=== PATIENT | male | born 1955 | race Caucasian/White ===

== ENCOUNTER 2017-05-17 02:02 | Inpatient (IN) | payer OTHER ==
[~2017-05-17] VITALS: Ht 172.7 cm; Wt 69.0 kg
[2017-05-17] MEDS ORDERED: SPIR25 PO (02:14)
[2017-05-17] MEDS ORDERED: OXYC5TAB3 PO (02:14)
[2017-05-17] MEDS ORDERED: OS500 PO (02:14)
[2017-05-17] MEDS ORDERED: LACT30L PO (02:14)
[2017-05-17] MEDS ORDERED: CIPR-245 PO (02:14)
[2017-05-17] MEDS ORDERED: FURO40TA5 PO (02:14)
[2017-05-17] MEDS ORDERED: FOLI1TAB15 PO (02:14)
[2017-05-17] MEDS ORDERED: THIA100 PO (02:14)
[2017-05-17 02:47] LABS: BASOPHILS % (AUTO) 0.3 % (0.0-2.0); EOSINOPHILS % (AUTO) 0.6 % (1.0-6.0); HEMATOCRIT 29.7 % (41-53); HEMOGLOBIN 10.2 g/dL (13.5-17.5); LYMPHOCYTES # (AUTO) 1.7 K/uL (1.0-4.8); LYMPHOCYTES % (AUTO) 13.5 % (22.0-44.0); MEAN CORPUSCULAR HEMOGLOBIN 32.1 pg (26.0-34.0); MEAN CORPUSCULAR HGB CONC 34.3 G/dL (31.0-37.0); MEAN CORPUSCULAR VOLUME 94 fL (80-100); MONOCYTES # (AUTO) 0.5 K/uL (0.1-1.0); MONOCYTES % (AUTO) 4.3 % (2.0-9.0); NEUTROPHILS # (AUTO) 10.3 K/uL (1.8-7.7); NEUTROPHILS % (AUTO) 81.3 % (40.0-70.0); PLATELET COUNT (AUTO) 233 K/uL (150-450); RED BLOOD CELL COUNT(AUTO) 3.18 MIL/uL (4.50-5.90); RED CELL DISTRIBUTION WIDTH 14.7 % (11.5-14.5); WHITE BLOOD COUNT (AUTO) 12.6 K/uL (4.5-11.0)
[2017-05-17 02:55] LABS: APPEARANCE,URINE CLOUDY (CLEAR); GLUCOSE, URINE (UA) NEGATIVE (NEGATIVE); KETONES,URINE TRACE mg/dL (NEGATIVE); LEUKOCYTE ESTERASE ,URINE MODERATE (NEGATIVE); OCCULT BLOOD,URINE LARGE (NEGATIVE); PROTEIN,URINE SEE CONFIRM (NEGATIVE)
[2017-05-17 03:07] LABS: B-TYPE NATRIURETIC PEPTIDE 80 pg/mL (0-100)
[2017-05-17 03:09] LABS: AMMONIA 170 umol/L (11-32); TROPONIN I < 0.02 ng/mL (0.00-0.05)
[2017-05-17 03:14] LABS: ANION GAP 12 mmol/L (8-16); CARBON DIOXIDE 18 mmol/L (22-29); CHLORIDE 112 mmol/L (98-107); CREATININE 1.73 mg/dL (0.60-1.30); GLOMERULAR FILTR. RATE CALC 40 mL/min (>60); SODIUM SERUM 142 mmol/L (136-145); UREA NITROGEN, BLOOD 37 mg/dL (7-18)
[2017-05-17 03:24] LABS: SULFOSALICYLIC ACID,URINE 3+ (Negative)
[2017-05-17 03:27] LABS: SQUAMOUS EPITHELIAL CELL,UR Few /LPF (None Seen); WBC,URINE 51-100 /HPF (0-5)
[2017-05-17 03:34] LABS: ALANINE AMINOTRANSFERASE 31 U/L (12-78); ALBUMIN 1.6 g/dL (3.4-5.0); ASPARTATE AMINOTRANSFERASE 79 U/L (15-37); BILIRUBIN,TOTAL 1.5 mg/dL (0.1-1.0); TOTAL PROTEIN, SERUM 6.6 g/dL (6.4-8.2)
[2017-05-17 03:44] LABS: LACTIC ACID 4.5 mmol/L (0.4-2.0)
[2017-05-17] MEDS ORDERED: LACTULOSE 200 GM/300 ML RECTAL SOLUTION PR ONE (04:00)
[2017-05-17 04:38] LABS: REFLEX LACTIC ACID? YES YES
[2017-05-17] MEDS ORDERED: CefTRIAXone 1 GM/DEXTROSE 50 ML IV ONE (04:45)
[2017-05-17] MEDS ORDERED: 0.9% SODIUM CHLORIDE 10 ML SYRINGE IVP PRN (05:45)
[2017-05-17] MEDS ORDERED: ONDANSETRON HCL 4 MG/2 ML VIAL IVP PRN (05:45)
[2017-05-17] MEDS ORDERED: SODIUM CHLORIDE 0.9% 2,000 ML IV ONE (06:00)
[2017-05-17 09:21] VITALS: BP 156/92
[2017-05-17 11:32] VITALS: BP 185/92
[2017-05-17] MEDS ORDERED: SPIR50 PO (15:05)
[2017-05-17] MEDS: LORazepam 2 MG/ML VIAL IVP PRN ×2 (15:06→20:51)
[2017-05-17 19:42] VITALS: BP 159/93
[2017-05-17] MEDS: RIFAXIMIN 550 MG TABLET PO SCH (21:29)
[2017-05-17] MEDS ORDERED: ACETAMINOPHEN 325 MG TABLET PO PRN (21:30)
[2017-05-18] MEDS ORDERED: CefTRIAXone 1 GM/DEXTROSE 50 ML IV SCH
[2017-05-18] MEDS ORDERED: LACTULOSE 20 GM/30 ML SOLUTION UDCUP PO SCH
[2017-05-18 00:05] VITALS: BP 160/91
[2017-05-18] MEDS ORDERED: SODIUM CHLORIDE 0.9% 500 ML IV ONE (00:20)
[2017-05-18] MEDS: AZITHROMYCIN 500 MG/NS 250 ML IV SCH (00:52)
[2017-05-18] MEDS: LACTULOSE 20 GM/30 ML SOLUTION UDCUP PO SCH ×6 (00:52→18:00)
[2017-05-18] MEDS: LORazepam 2 MG/ML VIAL IVP PRN ×3 (00:53→19:46)
[2017-05-18 04:31] VITALS: BP 158/91
[2017-05-18 05:48] LABS: BASOPHILS # (AUTO) 0.03 K/uL (0.00-0.20); BASOPHILS % (AUTO) 0.2 % (0.0-2.0); EOSINOPHILS # (AUTO) 0.16 K/uL (0.00-0.70); EOSINOPHILS % (AUTO) 1.19 % (1.0-6.0); HEMATOCRIT 27.3 % (41-53); HEMOGLOBIN 9.3 g/dL (13.5-17.5); INR 1.2 (0.9-1.1); LYMPHOCYTES # (AUTO) 1.6 K/uL (1.0-4.8); LYMPHOCYTES % (AUTO) 11.7 % (22.0-44.0); MEAN CORPUSCULAR HEMOGLOBIN 32.2 pg (26.0-34.0); MEAN CORPUSCULAR HGB CONC 33.9 G/dL (31.0-37.0); MEAN CORPUSCULAR VOLUME 95 fL (80-100); MONOCYTES # (AUTO) 0.9 K/uL (0.1-1.0); MONOCYTES % (AUTO) 6.6 % (2.0-9.0); NEUTROPHILS # (AUTO) 10.7 K/uL (1.8-7.7); NEUTROPHILS % (AUTO) 80.3 % (40.0-70.0); PLATELET COUNT (AUTO) 218 K/uL (150-450); PROTHROMBIN TIME 12.5 SEC (9.4-11.6); RED BLOOD CELL COUNT(AUTO) 2.88 MIL/uL (4.50-5.90); RED CELL DISTRIBUTION WIDTH 14.5 % (11.5-14.5); WHITE BLOOD COUNT (AUTO) 13.4 K/uL (4.5-11.0)
[2017-05-18 06:04] LABS: CREATININE 1.42 mg/dL (0.60-1.30); POTASSIUM 3.7 mmol/L (3.5-5.1)
[2017-05-18] MEDS: CefTRIAXone 1 GM/DEXTROSE 50 ML IV SCH (07:51)
[2017-05-18] MEDS: SPIRONOLACTONE 50 MG TABLET PO SCH (08:49)
[2017-05-18] MEDS: THIAMINE HCL 100 MG TABLET PO SCH (08:50)
[2017-05-18] MEDS: FUROSEMIDE 40 MG TABLET PO SCH (08:50)
[2017-05-18] MEDS: FOLIC ACID 1 MG TABLET PO SCH (08:50)
[2017-05-18] MEDS: CALCIUM OYSTER SHELL 500 MG TABLET PO SCH (09:00)
[2017-05-18] MEDS: RIFAXIMIN 550 MG TABLET PO SCH ×2 (09:00→20:02)
[2017-05-18 12:00] VITALS: BP 160/98
[2017-05-18 15:48] VITALS: BP 175/97
[2017-05-18 19:58] VITALS: BP 159/97
[2017-05-18] MEDS: METOPROLOL TARTRATE 50 MG TABLET PO SCH (20:02)
[2017-05-18] MEDS: DEXTROSE 5%-0.45% SODIUM CHL 1,000 ML IV SCH (20:03)
[2017-05-19] VITALS (7 sets, daily range): BP systolic 138–162; BP diastolic 78–101
[2017-05-19] MEDS: LORazepam 2 MG/ML VIAL IVP PRN ×4 (00:03→10:23)
[2017-05-19] MEDS: LACTULOSE 20 GM/30 ML SOLUTION UDCUP PO SCH ×4 (00:03→17:41)
[2017-05-19] MEDS: AZITHROMYCIN 500 MG/NS 250 ML IV SCH (01:09)
[2017-05-19] MEDS: CefTRIAXone 1 GM/DEXTROSE 50 ML IV SCH (08:39)
[2017-05-19] MEDS: METOPROLOL TARTRATE 50 MG TABLET PO SCH ×2 (08:44→20:48)
[2017-05-19] MEDS: FUROSEMIDE 40 MG TABLET PO SCH (08:44)
[2017-05-19] MEDS: FOLIC ACID 1 MG TABLET PO SCH (08:46)
[2017-05-19] MEDS: RIFAXIMIN 550 MG TABLET PO SCH (08:47)
[2017-05-19] MEDS: SPIRONOLACTONE 50 MG TABLET PO SCH (08:47)
[2017-05-19] MEDS: CALCIUM OYSTER SHELL 500 MG TABLET PO SCH (08:47)
[2017-05-19] MEDS: THIAMINE HCL 100 MG TABLET PO SCH (09:09)
[2017-05-19] MEDS: DEXTROSE 5%-0.45% SODIUM CHL 1,000 ML IV SCH (14:09)
[2017-05-19 15:46] LABS: BASOPHILS % (AUTO) 0.6 % (0.0-2.0); EOSINOPHILS % (AUTO) 4.1 % (1.0-6.0); HEMATOCRIT 30.7 % (41-53); HEMOGLOBIN 10.5 g/dL (13.5-17.5); LYMPHOCYTES # (AUTO) 2.3 K/uL (1.0-4.8); LYMPHOCYTES % (AUTO) 32.1 % (22.0-44.0); MEAN CORPUSCULAR HEMOGLOBIN 32.3 pg (26.0-34.0); MEAN CORPUSCULAR HGB CONC 34.1 G/dL (31.0-37.0); MEAN CORPUSCULAR VOLUME 95 fL (80-100); MONOCYTES # (AUTO) 0.7 K/uL (0.1-1.0); MONOCYTES % (AUTO) 9.4 % (2.0-9.0); NEUTROPHILS # (AUTO) 3.9 K/uL (1.8-7.7); NEUTROPHILS % (AUTO) 53.8 % (40.0-70.0); PLATELET COUNT (AUTO) 248 K/uL (150-450); RED BLOOD CELL COUNT(AUTO) 3.24 MIL/uL (4.50-5.90); RED CELL DISTRIBUTION WIDTH 14.8 % (11.5-14.5); WHITE BLOOD COUNT (AUTO) 7.3 K/uL (4.5-11.0)
[2017-05-19 15:56] LABS: CALCIUM, TOTAL 8.3 mg/dL (8.8-10.5); CREATININE 1.28 mg/dL (0.60-1.30); POTASSIUM 3.6 mmol/L (3.5-5.1)
[2017-05-19 16:01] LABS: ALBUMIN 1.5 g/dL (3.4-5.0); TOTAL PROTEIN, SERUM 6.2 g/dL (6.4-8.2)
[2017-05-20] MEDS: RIFAXIMIN 550 MG TABLET PO SCH ×3 (00:11→20:19)
[2017-05-20] MEDS: LACTULOSE 20 GM/30 ML SOLUTION UDCUP PO SCH ×5 (00:11→23:36)
[2017-05-20] MEDS: AZITHROMYCIN 500 MG/NS 250 ML IV SCH (00:12)
[2017-05-20] MEDS: LORazepam 2 MG/ML VIAL IVP PRN ×4 (00:12→20:24)
[2017-05-20] MEDS: DEXTROSE 5%-0.45% SODIUM CHL 1,000 ML IV SCH ×2 (05:28→16:11)
[2017-05-20 05:55] LABS: BASOPHILS % (AUTO) 0.6 % (0.0-2.0); EOSINOPHILS % (AUTO) 5.5 % (1.0-6.0); HEMATOCRIT 29.1 % (41-53); HEMOGLOBIN 10.1 g/dL (13.5-17.5); LYMPHOCYTES # (AUTO) 2.4 K/uL (1.0-4.8); LYMPHOCYTES % (AUTO) 43.7 % (22.0-44.0); MEAN CORPUSCULAR HEMOGLOBIN 32.2 pg (26.0-34.0); MEAN CORPUSCULAR HGB CONC 34.8 G/dL (31.0-37.0); MEAN CORPUSCULAR VOLUME 93 fL (80-100); MONOCYTES # (AUTO) 0.6 K/uL (0.1-1.0); NEUTROPHILS # (AUTO) 2.2 K/uL (1.8-7.7); NEUTROPHILS % (AUTO) 39.2 % (40.0-70.0); PLATELET COUNT (AUTO) 235 K/uL (150-450); RED BLOOD CELL COUNT(AUTO) 3.14 MIL/uL (4.50-5.90); RED CELL DISTRIBUTION WIDTH 14.4 % (11.5-14.5); WHITE BLOOD COUNT (AUTO) 5.6 K/uL (4.5-11.0)
[2017-05-20 06:53] LABS: ALBUMIN 1.3 g/dL (3.4-5.0); BILIRUBIN,TOTAL 0.8 mg/dL (0.1-1.0); CALCIUM, TOTAL 8.1 mg/dL (8.8-10.5); CREATININE 1.34 mg/dL (0.60-1.30); POTASSIUM 3.4 mmol/L (3.5-5.1); TOTAL PROTEIN, SERUM 5.8 g/dL (6.4-8.2)
[2017-05-20 08:04] VITALS: BP 152/82
[2017-05-20] MEDS: CefTRIAXone 1 GM/DEXTROSE 50 ML IV SCH (08:56)
[2017-05-20] MEDS: CALCIUM OYSTER SHELL 500 MG TABLET PO SCH (08:56)
[2017-05-20] MEDS: FOLIC ACID 1 MG TABLET PO SCH (08:57)
[2017-05-20] MEDS: FUROSEMIDE 40 MG TABLET PO SCH (08:57)
[2017-05-20] MEDS: THIAMINE HCL 100 MG TABLET PO SCH (08:57)
[2017-05-20] MEDS: SPIRONOLACTONE 50 MG TABLET PO SCH (08:57)
[2017-05-20] MEDS: METOPROLOL TARTRATE 50 MG TABLET PO SCH ×2 (08:57→20:19)
[2017-05-20 11:25] VITALS: BP 143/84
[2017-05-20 16:07] VITALS: BP 164/80
[2017-05-20 20:00] VITALS: BP 152/86
[2017-05-21] VITALS: BP 151/64
[2017-05-21] MEDS: AZITHROMYCIN 500 MG/NS 250 ML IV SCH (00:01)
[2017-05-21] MEDS: LORazepam 2 MG/ML VIAL IVP PRN ×2 (01:39→22:28)
[2017-05-21 04:21] VITALS: BP 138/70
[2017-05-21] MEDS: LACTULOSE 20 GM/30 ML SOLUTION UDCUP PO SCH ×4 (06:03→23:35)
[2017-05-21] MEDS: DEXTROSE 5%-WATER 1,000 ML IV SCH ×2 (06:03→20:10)
[2017-05-21 07:08] LABS: BASOPHILS % (AUTO) 0.8 % (0.0-2.0); EOSINOPHILS % (AUTO) 4.1 % (1.0-6.0); HEMATOCRIT 28.8 % (41-53); HEMOGLOBIN 9.9 g/dL (13.5-17.5); LYMPHOCYTES # (AUTO) 3.2 K/uL (1.0-4.8); LYMPHOCYTES % (AUTO) 49.7 % (22.0-44.0); MEAN CORPUSCULAR HEMOGLOBIN 32.3 pg (26.0-34.0); MEAN CORPUSCULAR HGB CONC 34.3 G/dL (31.0-37.0); MEAN CORPUSCULAR VOLUME 94 fL (80-100); MONOCYTES # (AUTO) 0.7 K/uL (0.1-1.0); MONOCYTES % (AUTO) 11.6 % (2.0-9.0); NEUTROPHILS # (AUTO) 2.1 K/uL (1.8-7.7); NEUTROPHILS % (AUTO) 33.8 % (40.0-70.0); PLATELET COUNT (AUTO) 225 K/uL (150-450); RED BLOOD CELL COUNT(AUTO) 3.06 MIL/uL (4.50-5.90); RED CELL DISTRIBUTION WIDTH 15.1 % (11.5-14.5); WHITE BLOOD COUNT (AUTO) 6.3 K/uL (4.5-11.0)
[2017-05-21 07:21] LABS: ALBUMIN 1.3 g/dL (3.4-5.0); BILIRUBIN,TOTAL 0.5 mg/dL (0.1-1.0); CREATININE 1.4 mg/dL (0.60-1.30); POTASSIUM 3.6 mmol/L (3.5-5.1); TOTAL PROTEIN, SERUM 5.6 g/dL (6.4-8.2)
[2017-05-21] MEDS: FOLIC ACID 1 MG TABLET PO SCH (08:34)
[2017-05-21] MEDS: CefTRIAXone 1 GM/DEXTROSE 50 ML IV SCH (08:34)
[2017-05-21] MEDS: METOPROLOL TARTRATE 50 MG TABLET PO SCH ×2 (08:34→20:09)
[2017-05-21] MEDS: THIAMINE HCL 100 MG TABLET PO SCH (08:34)
[2017-05-21] MEDS: CALCIUM OYSTER SHELL 500 MG TABLET PO SCH (08:34)
[2017-05-21] MEDS: RIFAXIMIN 550 MG TABLET PO SCH ×2 (08:34→20:09)
[2017-05-21 09:54] VITALS: BP 144/75
[2017-05-21 11:14] VITALS: BP 167/89
[2017-05-21 16:03] LABS: CALCIUM, TOTAL 7.8 mg/dL (8.8-10.5); CREATININE 1.26 mg/dL (0.60-1.30); POTASSIUM 3.5 mmol/L (3.5-5.1)
[2017-05-21 19:28] VITALS: BP 137/78
[2017-05-21 23:11] VITALS: BP 142/67
[2017-05-22] MEDS: AZITHROMYCIN 500 MG/NS 250 ML IV SCH (00:04)
[2017-05-22 04:24] VITALS: BP 138/72
[2017-05-22] MEDS: LACTULOSE 20 GM/30 ML SOLUTION UDCUP PO SCH ×3 (05:40→17:19)
[2017-05-22 07:50] LABS: BASOPHILS # (AUTO) 0.06 K/uL (0.00-0.20); EOSINOPHILS # (AUTO) 0.32 K/uL (0.00-0.70); EOSINOPHILS % (AUTO) 4.82 % (1.0-6.0); HEMATOCRIT 26.7 % (41-53); HEMOGLOBIN 8.9 g/dL (13.5-17.5); LYMPHOCYTES # (AUTO) 3.4 K/uL (1.0-4.8); LYMPHOCYTES % (AUTO) 50.6 % (22.0-44.0); MEAN CORPUSCULAR HEMOGLOBIN 31.7 pg (26.0-34.0); MEAN CORPUSCULAR HGB CONC 33.4 G/dL (31.0-37.0); MEAN CORPUSCULAR VOLUME 95 fL (80-100); MONOCYTES # (AUTO) 0.8 K/uL (0.1-1.0); NEUTROPHILS # (AUTO) 2.1 K/uL (1.8-7.7); NEUTROPHILS % (AUTO) 31.7 % (40.0-70.0); PLATELET COUNT (AUTO) 183 K/uL (150-450); RED BLOOD CELL COUNT(AUTO) 2.81 MIL/uL (4.50-5.90); RED CELL DISTRIBUTION WIDTH 15.6 % (11.5-14.5); WHITE BLOOD COUNT (AUTO) 6.6 K/uL (4.5-11.0)
[2017-05-22 08:03] LABS: ALANINE AMINOTRANSFERASE 80 U/L (12-78); ALBUMIN 1.2 g/dL (3.4-5.0); ANION GAP 7 mmol/L (8-16); ASPARTATE AMINOTRANSFERASE 157 U/L (15-37); BILIRUBIN,TOTAL 0.5 mg/dL (0.1-1.0); CALCIUM, TOTAL 7.7 mg/dL (8.8-10.5); CARBON DIOXIDE 22 mmol/L (22-29); CHLORIDE 118 mmol/L (98-107); GLOMERULAR FILTR. RATE CALC > 60 mL/min (>60); POTASSIUM 3.3 mmol/L (3.5-5.1); SODIUM SERUM 147 mmol/L (136-145); TOTAL PROTEIN, SERUM 5.4 g/dL (6.4-8.2); UREA NITROGEN, BLOOD 19 mg/dL (7-18)
[2017-05-22 08:13] VITALS: BP 132/70
[2017-05-22] MEDS: CALCIUM OYSTER SHELL 500 MG TABLET PO SCH (08:31)
[2017-05-22] MEDS: RIFAXIMIN 550 MG TABLET PO SCH ×2 (08:31→21:28)
[2017-05-22] MEDS: CefTRIAXone 1 GM/DEXTROSE 50 ML IV SCH (08:31)
[2017-05-22] MEDS: METOPROLOL TARTRATE 50 MG TABLET PO SCH ×2 (08:31→21:28)
[2017-05-22] MEDS: FOLIC ACID 1 MG TABLET PO SCH (08:31)
[2017-05-22] MEDS: THIAMINE HCL 100 MG TABLET PO SCH (08:31)
[2017-05-22] MEDS: CloNIDine HCL 0.1 MG TABLET PO PRN (08:31)
[2017-05-22] MEDS: DEXTROSE 5%-WATER 1,000 ML IV SCH ×2 (09:43)
[2017-05-22] MEDS ORDERED: POTASSIUM CHLORIDE 20 MEQ ER TABLET PO ONE (13:15)
[2017-05-22 13:16] VITALS: BP 138/72
[2017-05-22 16:02] VITALS: BP 140/68
[2017-05-22 17:41] LABS: CALCIUM, TOTAL 7.8 mg/dL (8.8-10.5); CREATININE 1.22 mg/dL (0.60-1.30); POTASSIUM 3.5 mmol/L (3.5-5.1)
[2017-05-22 21:32] VITALS: BP 156/86
[2017-05-23] MEDS: DEXTROSE 5%-WATER 1,000 ML IV SCH ×4 (00:01→23:39)
[2017-05-23 00:15] VITALS: BP 135/66
[2017-05-23 05:30] VITALS: BP 145/83
[2017-05-23] MEDS: LACTULOSE 20 GM/30 ML SOLUTION UDCUP PO SCH ×5 (05:42→23:38)
[2017-05-23 07:06] LABS: EOSINOPHILS % (AUTO) 3.9 % (1.0-6.0); HEMOGLOBIN 9.7 g/dL (13.5-17.5); LYMPHOCYTES # (AUTO) 3.2 K/uL (1.0-4.8); LYMPHOCYTES % (AUTO) 37.5 % (22.0-44.0); MEAN CORPUSCULAR HEMOGLOBIN 32.8 pg (26.0-34.0); MEAN CORPUSCULAR HGB CONC 34.5 G/dL (31.0-37.0); MEAN CORPUSCULAR VOLUME 95 fL (80-100); MONOCYTES # (AUTO) 0.9 K/uL (0.1-1.0); MONOCYTES % (AUTO) 10.5 % (2.0-9.0); NEUTROPHILS % (AUTO) 47.1 % (40.0-70.0); PLATELET COUNT (AUTO) 173 K/uL (150-450); RED BLOOD CELL COUNT(AUTO) 2.95 MIL/uL (4.50-5.90); RED CELL DISTRIBUTION WIDTH 15.6 % (11.5-14.5); WHITE BLOOD COUNT (AUTO) 8.5 K/uL (4.5-11.0)
[2017-05-23 07:28] LABS: ALBUMIN 1.2 g/dL (3.4-5.0); BILIRUBIN,TOTAL 0.6 mg/dL (0.1-1.0); CALCIUM, TOTAL 7.6 mg/dL (8.8-10.5); CREATININE 1.25 mg/dL (0.60-1.30); TOTAL PROTEIN, SERUM 5.4 g/dL (6.4-8.2)
[2017-05-23 07:30] VITALS: BP 143/86
[2017-05-23] MEDS: CALCIUM OYSTER SHELL 500 MG TABLET PO SCH (08:56)
[2017-05-23] MEDS: CloNIDine HCL 0.1 MG TABLET PO PRN (08:56)
[2017-05-23] MEDS: FOLIC ACID 1 MG TABLET PO SCH (08:56)
[2017-05-23] MEDS: RIFAXIMIN 550 MG TABLET PO SCH ×2 (08:56→20:38)
[2017-05-23] MEDS: THIAMINE HCL 100 MG TABLET PO SCH (08:56)
[2017-05-23] MEDS: METOPROLOL TARTRATE 50 MG TABLET PO SCH ×2 (08:56→20:38)
[2017-05-23] MEDS: CefTRIAXone 1 GM/DEXTROSE 50 ML IV SCH (08:57)
[2017-05-23 11:30] VITALS: BP 137/82
[2017-05-23] MEDS ORDERED: PANTOPRAZOLE SODIUM 40 MG/VIAL IVP ONE (14:30)
[2017-05-23 15:20] VITALS: BP 138/73
[2017-05-23 20:39] VITALS: BP 131/75
[2017-05-23] MEDS: AZITHROMYCIN 500 MG/NS 250 ML IV SCH ×2 (23:39)
[2017-05-24 00:01] VITALS: BP 137/74
[2017-05-24 04:43] VITALS: BP 121/61
[2017-05-24] MEDS: LACTULOSE 20 GM/30 ML SOLUTION UDCUP PO SCH ×2 (05:13→11:55)
[2017-05-24 05:52] LABS: BASOPHILS % (AUTO) 0.8 % (0.0-2.0); EOSINOPHILS % (AUTO) 2.3 % (1.0-6.0); HEMATOCRIT 26.9 % (41-53); HEMOGLOBIN 9.3 g/dL (13.5-17.5); LYMPHOCYTES # (AUTO) 2.6 K/uL (1.0-4.8); LYMPHOCYTES % (AUTO) 21.6 % (22.0-44.0); MEAN CORPUSCULAR HEMOGLOBIN 32.5 pg (26.0-34.0); MEAN CORPUSCULAR HGB CONC 34.6 G/dL (31.0-37.0); MEAN CORPUSCULAR VOLUME 94 fL (80-100); NEUTROPHILS # (AUTO) 8.2 K/uL (1.8-7.7); NEUTROPHILS % (AUTO) 67.3 % (40.0-70.0); PLATELET COUNT (AUTO) 162 K/uL (150-450); RED BLOOD CELL COUNT(AUTO) 2.86 MIL/uL (4.50-5.90); WHITE BLOOD COUNT (AUTO) 12.2 K/uL (4.5-11.0)
[2017-05-24 06:31] LABS: ALBUMIN 1.2 g/dL (3.4-5.0); BILIRUBIN,TOTAL 0.7 mg/dL (0.1-1.0); CALCIUM, TOTAL 7.4 mg/dL (8.8-10.5); CREATININE 1.48 mg/dL (0.60-1.30); POTASSIUM 4.3 mmol/L (3.5-5.1); TOTAL PROTEIN, SERUM 5.7 g/dL (6.4-8.2)
[2017-05-24] MEDS: METOPROLOL TARTRATE 50 MG TABLET PO SCH (08:15)
[2017-05-24] MEDS: RIFAXIMIN 550 MG TABLET PO SCH (08:15)
[2017-05-24] MEDS: CefTRIAXone 1 GM/DEXTROSE 50 ML IV SCH (08:15)
[2017-05-24] MEDS: FOLIC ACID 1 MG TABLET PO SCH (08:15)
[2017-05-24] MEDS: THIAMINE HCL 100 MG TABLET PO SCH (08:15)
[2017-05-24] MEDS: CALCIUM OYSTER SHELL 500 MG TABLET PO SCH (08:15)
[2017-05-24 08:26] VITALS: BP 99/56
[2017-05-24] MEDS ORDERED: PANTOPRAZOLE SODIUM 40 MG/VIAL IVP SCH (09:00)
[2017-05-24] MEDS ORDERED: AmLODIPine BESYLATE 10 MG TABLET PO SCH (09:00)
[2017-05-24] MEDS: DEXTROSE 5%-WATER 1,000 ML IV SCH (10:00)
[2017-05-24 11:16] VITALS: BP 115/70
[2017-05-24] MEDS ORDERED: AMLO-512 PO (15:04)
[2017-05-24] MEDS ORDERED: METO50 PO (15:05)
[2017-05-24] MEDS ORDERED: RIFAX550 PO (15:06)
[2017-05-24] MEDS ORDERED: PANT40TA25 PO (15:07)
[2017-05-24 15:54] VITALS: BP 119/71
== END 2017-05-24 17:05 | disposition home or self-care (01) | DRG 720 ==
LOC: EMS 02:04 → 6N 07:24
PROVIDERS: ADMIT Hospitalist; ATTEND Hospitalist
DX: A41.9 Sepsis, unspecified organism (principal); E43 Unspecified severe protein-calorie malnutrition; K85.90 Acute pancreatitis without necrosis or infection, unspecified; N17.9 Acute kidney failure, unspecified; E87.0 Hyperosmolality and hypernatremia; J18.9 Pneumonia, unspecified organism; D64.9 Anemia, unspecified; K72.90 Hepatic failure, unspecified without coma; N39.0 Urinary tract infection, site not specified; Z79.899 Other long term (current) drug therapy; Z68.23 Body mass index [BMI] 23.0-23.9, adult; Z78.1 Physical restraint status
CPT/HCPCS: 51702; 70450; 82271; 83605; 87040; 87086; 96361; 96365; 97116; 97161; 97530; 99285; C9113; G0480; J0456; J0696; J2060; J7030; J7040; J7060

== ENCOUNTER 2018-07-10 12:33 | Inpatient (IN) | payer OTHER ==
[~2018-07-10] VITALS: Ht 177.8 cm; Wt 74.1 kg
[~2018-07-10 12:33] MED LIST: AMLO-512 PO; FOLI1TAB15 PO; FURO40TA5 PO; LACT30L PO; METO50 PO; OS500 PO; OXYC5TAB3 PO; PANT40TA25 PO; RIFAX550 PO; SPIR50 PO; THIA100T67 PO
[2018-07-10 15:04] LABS: EOSINOPHILS % (AUTO) 0.9 % (1.0-6.0); HEMATOCRIT 24.2 % (41-53); HEMOGLOBIN 7.7 g/dL (13.5-17.5); LYMPHOCYTES # (AUTO) 0.7 K/uL (1.0-4.8); MEAN CORPUSCULAR HEMOGLOBIN 25.1 pg (26.0-34.0); MEAN CORPUSCULAR HGB CONC 31.7 G/dL (31.0-37.0); MEAN CORPUSCULAR VOLUME 79 fL (80-100); MONOCYTES # (AUTO) 0.4 K/uL (0.1-1.0); MONOCYTES % (AUTO) 10.9 % (2.0-9.0); NEUTROPHILS # (AUTO) 2.4 K/uL (1.8-7.7); NEUTROPHILS % (AUTO) 66.2 % (40.0-70.0); PLATELET COUNT (AUTO) 286 K/uL (150-450); RED BLOOD CELL COUNT(AUTO) 3.05 MIL/uL (4.50-5.90); RED CELL DISTRIBUTION WIDTH 18.3 % (11.5-14.5)
[2018-07-10 15:06] LABS: APPEARANCE,URINE CLEAR (CLEAR); GLUCOSE, URINE (UA) NEGATIVE (NEGATIVE); KETONES,URINE TRACE mg/dL (NEGATIVE); LEUKOCYTE ESTERASE ,URINE NEGATIVE (NEGATIVE); NITRATE,URINE NEGATIVE (NEGATIVE); OCCULT BLOOD,URINE LARGE (NEGATIVE); PH,URINE 5.5 (5.0-8.0); PROTEIN,URINE SEE CONFIRM (NEGATIVE); UROBILINOGEN,URINE 0.2 mg/dL (<=1.0)
[2018-07-10 15:11] LABS: BILIRUBIN,URINE PRELIM. POSITIVE (NEGATIVE)
[2018-07-10 15:14] LABS: ANION GAP 12 mmol/L (8-16); CALCIUM, TOTAL 7.7 mg/dL (8.8-10.5); CARBON DIOXIDE 20 mmol/L (22-29); CHLORIDE 106 mmol/L (98-107); CREATININE 1.09 mg/dL (0.60-1.30); GLOMERULAR FILTR. RATE CALC > 60 mL/min (>60); GLUCOSE,RANDOM 184 mg/dL (70-110); SODIUM SERUM 138 mmol/L (136-145); UREA NITROGEN, BLOOD 10 mg/dL (7-18)
[2018-07-10 15:14] LABS: SULFOSALICYLIC ACID,URINE 4+ (Negative)
[2018-07-10 15:15] LABS: BACTERIA,URINE Few /HPF (None Seen); WBC,URINE 0-2 /HPF (0-5)
[2018-07-10 15:16] LABS: SQUAMOUS EPITHELIAL CELL,UR Few /LPF (None Seen)
[2018-07-10 15:17] LABS: MUCUS,URINE Few LPF (None Seen)
[2018-07-10 15:19] LABS: ALANINE AMINOTRANSFERASE 19 U/L (12-78); ALBUMIN 1.8 g/dL (3.4-5.0); ALKALINE PHOSPHATASE 76 U/L (46-116); ASPARTATE AMINOTRANSFERASE 45 U/L (15-37); BILIRUBIN,TOTAL 0.6 mg/dL (0.1-1.0); LIPASE 231 U/L (73-393); TOTAL PROTEIN, SERUM 6.8 g/dL (6.4-8.2)
[2018-07-10] MEDS ORDERED: IOVERSOL 350 MG/ML 150 ML VIAL ONE (17:45)
[2018-07-10] MEDS ORDERED: MORPHINE SULFATE 4 MG/ML SYRINGE IVP ONE (20:30)
[2018-07-10] MEDS ORDERED: ONDANSETRON HCL 4 MG/2 ML VIAL IVP ONE (20:30)
[2018-07-10] MEDS ORDERED: ONDANSETRON HCL 4 MG/2 ML VIAL IVP PRN (21:00)
[2018-07-10] MEDS ORDERED: HYDROCODONE/ACETAMINOPHEN 5-325 MG TABLET PO PRN (21:00)
[2018-07-10] MEDS ORDERED: ACETAMINOPHEN 325 MG TABLET PO PRN (21:00)
[2018-07-10] MEDS ORDERED: ALBUTEROL SULFATE 2.5 MG/0.5 ML NEB SOLUTION NEB PRN (21:00)
[2018-07-10] MEDS ORDERED: MORPHINE SULFATE 2 MG/ML SYRINGE IVP PRN (21:00)
[2018-07-10] MEDS ORDERED: MAGNESIUM HYDROXIDE SUSPENSION 30 ML UDCUP PO PRN (21:00)
[2018-07-10] MEDS ORDERED: IPRATROPIUM BROMIDE 0.5 MG/2.5 ML NEB SOLUTION NEB PRN (21:00)
[2018-07-10] MEDS ORDERED: BISACODYL 10 MG RECTAL RECTAL SUPPOSITORY PR PRN (21:00)
[2018-07-10] MEDS ORDERED: [UNRECOGNIZED DRUG - OTHER] PO PRN (21:00)
[2018-07-10] MEDS ORDERED: ZOLPIDEM TARTRATE 5 MG TABLET PO PRN (21:00)
[2018-07-10 21:19] VITALS: BP 134/64
[2018-07-10] MEDS: LACTULOSE 20 GM/30 ML SOLUTION UDCUP PO SCH (21:27)
[2018-07-10] MEDS: METOPROLOL TARTRATE 50 MG TABLET PO SCH (21:28)
[2018-07-10] MEDS: DOCUSATE SODIUM 100 MG CAPSULE PO SCH (21:28)
[2018-07-10 21:33] LABS: INR 1.2 (0.9-1.1); PROTHROMBIN TIME 12.9 SEC (9.4-11.6)
[2018-07-10] MEDS: OxyCODONE HCL 5 MG IR TABLET PO PRN (22:15)
[2018-07-10] MEDS: RIFAXIMIN 550 MG TABLET PO SCH (22:16)
[2018-07-10] MEDS: HEPARIN SODIUM,PORCINE 5,000 UNITS/ML VIAL SQ SCH (23:19)
[2018-07-11] VITALS (7 sets, daily range): BP systolic 114–153; BP diastolic 51–84
[2018-07-11] MEDS: HEPARIN SODIUM,PORCINE 5,000 UNITS/ML VIAL SQ SCH ×3 (08:00→23:33)
[2018-07-11] MEDS ORDERED: PANTOPRAZOLE SODIUM 40 MG/VIAL IVP SCH (09:00)
[2018-07-11] MEDS: DOCUSATE SODIUM 100 MG CAPSULE PO SCH ×2 (09:00→19:54)
[2018-07-11] MEDS: SPIRONOLACTONE 50 MG TABLET PO SCH (09:37)
[2018-07-11] MEDS: METOPROLOL TARTRATE 50 MG TABLET PO SCH ×2 (09:37→19:54)
[2018-07-11] MEDS: CALCIUM OYSTER SHELL 500 MG TABLET PO SCH (09:37)
[2018-07-11] MEDS: PANTOPRAZOLE SODIUM 40 MG DR TABLET PO SCH (09:37)
[2018-07-11] MEDS: RIFAXIMIN 550 MG TABLET PO SCH ×2 (09:37→19:54)
[2018-07-11] MEDS: FOLIC ACID 1 MG TABLET PO SCH (09:37)
[2018-07-11] MEDS: AmLODIPine BESYLATE 10 MG TABLET PO SCH (09:37)
[2018-07-11] MEDS: THIAMINE HCL 100 MG TABLET PO SCH (09:37)
[2018-07-11] MEDS: FUROSEMIDE 40 MG TABLET PO SCH (09:48)
[2018-07-11] MEDS: OxyCODONE HCL 5 MG IR TABLET PO PRN ×2 (09:48→17:51)
[2018-07-11 11:34] LABS: SPECIMENTYPE,BODY FLUID PERITONEAL
[2018-07-11 13:08] LABS: APPEARANCE,SPUN,BODY FLUID HAZY (CLEAR); APPEARANCE,UNSPUN,BODY FLUID HAZY (CLEAR); COLOR,BODY FLUID LT YELLOW (LT YELLOW); TOTAL VOLUME,BODY FLUID 7450 mL
[2018-07-11 13:10] LABS: WBC, BODY FLUID 283 /cu. mm.
[2018-07-11 13:14] LABS: BASOPHILS,BODY FLUID 0 %; EOSINOPHILS,BF (ANAL) 0 %; LYMPHOCYTES,BODY FLUID 30 %; MONOCYTES,BODY FLUID 65 %; NEUTROPHILS,BODY FLUID 5 %
[2018-07-11] MEDS ORDERED: SODIUM CHLORIDE 0.9% 500 ML IV ONE (14:10)
[2018-07-11] MEDS: ALBUMIN HUMAN 25%-25GM/100ML 100 ML IV SCH ×2 (14:18→19:54)
[2018-07-11] MEDS: LACTULOSE 20 GM/30 ML SOLUTION UDCUP PO SCH ×2 (16:49→19:54)
[2018-07-12] MEDS: ALBUMIN HUMAN 25%-25GM/100ML 100 ML IV SCH ×2 (03:57→11:51)
[2018-07-12 04:15] VITALS: BP 126/64
[2018-07-12 06:15] LABS: ANION GAP 10 mmol/L (8-16); CALCIUM, TOTAL 7.6 mg/dL (8.8-10.5); CARBON DIOXIDE 22 mmol/L (22-29); CHLORIDE 108 mmol/L (98-107); CREATININE 1.06 mg/dL (0.60-1.30); GLOMERULAR FILTR. RATE CALC > 60 mL/min (>60); GLUCOSE,RANDOM 88 mg/dL (70-110); POTASSIUM 4.3 mmol/L (3.5-5.1); SODIUM SERUM 140 mmol/L (136-145); UREA NITROGEN, BLOOD 12 mg/dL (7-18)
[2018-07-12 08:32] VITALS: BP 120/60
[2018-07-12] MEDS: HEPARIN SODIUM,PORCINE 5,000 UNITS/ML VIAL SQ SCH (09:00)
[2018-07-12] MEDS: DOCUSATE SODIUM 100 MG CAPSULE PO SCH (09:01)
[2018-07-12] MEDS: THIAMINE HCL 100 MG TABLET PO SCH (09:01)
[2018-07-12] MEDS: METOPROLOL TARTRATE 50 MG TABLET PO SCH (09:02)
[2018-07-12] MEDS: CALCIUM OYSTER SHELL 500 MG TABLET PO SCH (09:02)
[2018-07-12] MEDS: AmLODIPine BESYLATE 10 MG TABLET PO SCH (09:02)
[2018-07-12] MEDS: RIFAXIMIN 550 MG TABLET PO SCH (09:02)
[2018-07-12] MEDS: FOLIC ACID 1 MG TABLET PO SCH (09:02)
[2018-07-12] MEDS: FUROSEMIDE 40 MG TABLET PO SCH (09:02)
[2018-07-12] MEDS: PANTOPRAZOLE SODIUM 40 MG DR TABLET PO SCH (09:03)
[2018-07-12] MEDS: SPIRONOLACTONE 50 MG TABLET PO SCH (09:17)
[2018-07-12] MEDS: LACTULOSE 20 GM/30 ML SOLUTION UDCUP PO SCH (09:17)
[2018-07-12] MEDS: OxyCODONE HCL 5 MG IR TABLET PO PRN (09:17)
[2018-07-12] MEDS ORDERED: OMEP20 PO (11:12)
[2018-07-12] MEDS ORDERED: TRAM50TA4 PO (11:14)
[2018-07-12 11:30] VITALS: BP 125/66
== END 2018-07-12 14:17 | disposition home or self-care (01) | DRG 280 ==
LOC: EMS 12:33 → 6N 20:00
PROVIDERS: ADMIT Hospitalist; ATTEND Hospitalist
PROC: 0W9G3ZZ Drainage of Peritoneal Cavity, Percutaneous Approach (ICD-10-PCS; principal; 2018-07-10)
DX: K70.31 Alcoholic cirrhosis of liver with ascites (principal); E43 Unspecified severe protein-calorie malnutrition; B19.20 Unspecified viral hepatitis C without hepatic coma; D64.9 Anemia, unspecified; I10 Essential (primary) hypertension; K40.90 Unilateral inguinal hernia, without obstruction or gangrene, not specified as recurrent; N43.3 Hydrocele, unspecified; Z59.0 Homelessness; Z91.19 Patient's noncompliance with other medical treatment and regimen; Z79.891 Long term (current) use of opiate analgesic; Z79.899 Other long term (current) drug therapy; Z68.23 Body mass index [BMI] 23.0-23.9, adult
CPT/HCPCS: 49083; 74177; 76700; 76870; 76942; 82042; 82150; 82945; 83615; 84157; 87070; 87205; 89051; 96365; 96366; 96372; 96375; 99285; J1644; J2270; J7040; P9046